=== PATIENT | female | born 1995 | race Caucasian/White ===

== ENCOUNTER 2017-12-22 12:25 | Emergency (ER) | END 2017-12-22 13:42 | disposition home or self-care (01) ==

== ENCOUNTER 2018-01-17 09:10 | Emergency (ER) | END 2018-01-17 14:50 | disposition home or self-care (01) ==

== ENCOUNTER 2018-01-24 00:38 | Inpatient (IN) | END 2018-01-28 19:15 | disposition home or self-care (01) | DRG 603 ==

== ENCOUNTER 2018-03-16 22:13 | Inpatient (IN) | END 2018-03-23 18:00 | disposition home or self-care (01) | DRG 872 ==

== ENCOUNTER 2018-12-27 07:55 | Emergency (ER) | payer OTHER ==
[~2018-12-27] VITALS: Ht 170.2 cm; Wt 110.0 kg
[~2018-12-27 07:55] MED LIST: CIPR500T4 PO; HYDR-4011 PO; LANT3I SC; LEVO25TA6 PO; ONDA4TAB95 PO
[2018-12-27 08:00] VITALS: Ht 170.2 cm; Wt 110.0 kg
[2018-12-27] MEDS ORDERED: IBUP800T48 PO (09:39)
[2018-12-27 10:31] VITALS: BP 128/77; PULSE 71; RESP 17
--- NOTE | 2018-12-27 12:21 | ERD ---
ER Documentation Chief Complaint Chief Complaint left leg pain due to fall HPI 23-year-old female presenting with pain to left leg. Patient states that 4 days ago patient slipped and fell at a bank. She slipped on some water. She has pain with walking and has not been able to sleep secondary to the pain. She has not taken medication for the pain. Denies any numbness or tingling down her leg. Medical history is diabetes and allergy to penicillin. Surgical history of cystitis vaginitis. Social history denies ROS All systems reviewed and are negative except as per history of present illness. Medications Home Meds Active Scripts Ibuprofen* (Motrin*) 800 Mg Tab, 800 MG PO Q6, #30 TAB Prov:MORIAH ANDERSON PA-C 12/27/18 Hydrocodone/Acetaminophen ([place] 5-325 Tablet) 1 Each Tablet, 1 EACH PO Q6 for pain for 10 Days, TAB Prov:URVASHI RODARTE MD 03/23/18 Ondansetron Hcl* (Ondansetron Hcl*) 4 Mg Tablet, 4 MG PO Q6H PRN for NAUSEA AND/OR VOMITING for 30 Days, TAB Prov:URVASHI RODARTE MD 03/23/18 Ciprofloxacin Hcl* (Ciprofloxacin Hcl*) 500 Mg Tablet, 500 MG PO BID@,18 for 14 Days, TAB Prov:URVASHI RODARTE MD 03/23/18 Insulin Glargine* (Lantus*) 100 Unit/Ml Soln, 5 UNIT SC QHS, #1 VIAL Prov:URVASHI RODARTE MD 03/23/18 Reported Medications Levothyroxine Sodium* (Levothyroxine Sodium*) Unknown Strength Tablet, PO BEFORE BREAKFAST, #30 TAB 04/01/16 Allergies Allergies: Coded Allergies: Penicillins (Unverified Allergy, Mild, rash, 03/16/18) amoxicillin (Unverified Allergy, Mild, 03/16/18) RASH ON FORHEAD AND BACK FROM MEDICATION PMhx/Soc History of Surgery: Yes (open abdominal sx, cyst removal from left leg,bartholin gland i&D) Anesthesia Reaction: No Hx Neurological Disorder: No Hx Respiratory Disorders: No Hx Cardiac Disorders: No Hx Psychiatric Problems: No Hx Miscellaneous Medical Probl: No Hx Alcohol Use: No Hx Substance Use: No Hx Tobacco Use: No Smoking Status: Never smoker FmHx Family History: No diabetes, No coronary disease, No other Physical Exam Vitals Vital Signs Date Temp Pulse Resp B/P (MAP) Pulse Ox O2 O2 Flow FiO2 Time Delivery Rate 12/27/18 98.0 71 17 128/77 97 Room Air 10:31 (94) 12/27/18 97.8 78 19 133/79 94 08:00 (97) Physical Exam GENERAL: The patient is well-appearing, well-nourished, in no acute distress CHEST: Clear to auscultation bilaterally. There are no rales, wheezes or rhonchi. HEART: Regular rate and rhythm. No murmurs, clicks, rubs or gallops. No S3 or S4. EXTREMITIES: TTP to left hip. Normal ROM. Strength 5/5. No deformity. NEUROLOGIC: Alert and oriented. Cranial nerves II through XII intact. Motor strength in all 4 extremities with 5 out of 5 strength. Sensation grossly intact. Normal speech and gait. SKIN: There is no apparent rash or petechiae. The skin is warm and dry. Results 24 hrs Laboratory Tests Test 12/27/18 08:54 POC Beta HCG, Qualitative NEGATIVE Procedures/MDM DIAGNOSTIC IMAGING REPORT Patient: LY JIMENEZ : 1995 Age: 23 Sex: F MR #: [id number] DOS: 12/27/18 0823 Ordering MD: LEX ANDERSON PA-C Location: [facility] Room/Bed: PROCEDURE: XR Hip. CLINICAL INDICATION: pain TECHNIQUE: AP and frog lateral views of the left hip were performed. COMPARISON: 03/20/18 FINDINGS: There is normal mineralization and alignment. No acute fracture or osseous lesion is identified. There are no significant degenerative changes in the hip. The soft tissues are unremarkable. RPTAT: AA IMPRESSION: Unremarkable left hip. MDM: 23-year-old female complaining of left hip pain. Patient likely has contusion. Patient has normal range of motion I see patient walking so have low suspicion for deep fracture. Patient's x-rays are within normal limits. I have low suspicion for tendon or ligament rupture. Patient is discharged with strict ER precautions and told to follow-up with primary care within 1 to 2 days for close evaluation. Patient is told symptoms change or worsen to return immed iately to the ER. All questions answered at discharge Departure Diagnosis: Primary Impression: Contusion of leg Condition: Stable Patient Instructions: Contusion, Lower Extremity Referrals: [facility] YOU HAVE RECEIVED A MEDICAL SCREENING EXAM AND THE RESULTS INDICATE THAT YOU DO NOT HAVE A CONDITION THAT REQUIRES URGENT TREATMENT IN THE EMERGENCY DEPARTMENT. FURTHER EVALUATION AND TREATMENT OF YOUR CONDITION CAN WAIT UNTIL YOU ARE SEEN IN YOUR DOCTORS OFFICE WITHIN THE NEXT 1-2 DAYS. IT IS YOUR RESPONSIBILITY TO MAKE AN APPOINTMENT FOR FOLOW-UP CARE. IF YOU HAVE A PRIMARY DOCTOR --you should call your primary doctor and schedule an appointment IF YOU DO NOT HAVE A PRIMARY DOCTOR YOU CAN CALL OUR PHYSICIAN REFERRAL HOTLINE AT IF YOU CAN NOT AFFORD TO SEE A PHYSICIAN YOU CAN CHOSE FROM THE FOLLOWING [facility] [address] [facility] [address] [facility] [facility] [address] [facility] [address] [facility] [facility] [address] [facility] [address] Additional Instructions: FOLLOW UP WITH YOUR PRIMARY CARE PHYSICIAN TOMORROW.Return to this facility if you are not improving as expected. MORIAH ANDERSON PA-C December 27, 2018 12:21
== END 2018-12-27 10:14 | disposition home or self-care (01) ==
LOC: FTE 07:55
DX: S80.12XA Contusion of left lower leg, initial encounter (principal); W01.0XXA Fall on same level from slipping, tripping and stumbling without subsequent striking against object, initial encounter; Y92.510 Bank as the place of occurrence of the external cause
CPT/HCPCS: 73510; 81025; Z7502